=== PATIENT | male | born 1945 | race Caucasian/White ===

== ENCOUNTER 2016-04-15 19:41 | Observation (INO) | payer OTHER ==
[~2016-04-15] VITALS: Ht 180.3 cm; Wt 101.1 kg
[~2016-04-15 19:41] MED LIST: ADVAIR 250/501 DISK IH; ALBUTEROL SULF8.5 GM IH; ANTIVERT25 MG PO; ASPIR 8181 M1 PO; ASPIR-LOW81 MG PO; AUGMENTIN875 MG PO; Aspirin E.C. PO; CIPRO500 MG PO; CRESTOR10 MG PO; DIOVAN80 MG PO; DUONEB 2.5-0.5 M3 ML IH; FENOFIBRATE134 M1 PO; FLONASE16 G1 BOTH NARES; FLOXIN OTIC SOLN5 ML BOTH EARS; Folvite PO; GEMFIBROZIL600 MG PO; HABITROL,NICODE21 MG TD; HYDROCHLOROTH12.5 M1 PO; HYDROCHLOROTH12.5 M3 PO; HYDRODIURIL,O12.5 M2 PO; Habitrol,Nicoderm CQ TD; LOPID600 MG PO; LOPRESSOR25 MG PO; LOVAZA1 GM PO; LUNESTA1 MG PO; Levaquin PO; Lopid PO; METFORMIN HCL1000 MG PO; MICROZIDE12.5 M1 PO; NICOTINE PATCH1 EAC1 TD; NICOTINE PATCH1 EAC2 TD; Norvasc PO; OXYCODONE HCL10 MG PO; OXYCODONE30 MG PO; OXYCONTIN10 MG PO; OXYCONTIN20 MG PO; OXYGEN MC; PANTOPRAZOLE SO40 MG PO; PLAVIX75 MG PO; PREDNISONE10 MG PO; PROAIR HFA8.5 GM IH; SPIRIVA1 INHALATI IH; TEMAZEPAM15 MG PO; THIAMINE,VITAM100 MG PO; Tessalon Perle PO; Ultram PO; VITAMIN B12-FO1 EACH PO; ZESTRIL,PRINIVI20 MG PO; Zestril,Prinivil PO; Zocor PO; predniSONE PO
[2016-04-15 20:02] LABS: HEMATOCRIT 35.4 % (38.0-50.0); MCH 32.3 PG (29.0-34.0); MCHC 33.9 G/DL (30.0-36.0); MCV 95.2 FL (86-99); PLATELET COUNT 297 K/uL (156-360); RBC DIS.WIDTH-CV 13.8 % (11.8-14.6); RBC DIS.WIDTH-SD 44.7 % (39-53); RED BLOOD COUNT 3.72 M/uL (4.00-5.50); WHITE BLOOD COUNT 8.1 K/uL (4.1-10.2)
[2016-04-15 20:11] LABS: CHLORIDE 111 mEq/L (99-109); POTASSIUM 4.6 mEq/L (3.7-5.4); SODIUM 144 mEq/L (136-147)
[2016-04-15 20:12] LABS: GLUCOSE 165 mg/dL (70-99)
[2016-04-15 20:14] LABS: ANION GAP 14 MEQ/L (2-14)
[2016-04-15 20:16] LABS: GFR ESTIMATE (CALCULATED) 43 mL/min/
[2016-04-15 20:17] LABS: UREA NITROGEN (BUN) 20 mg/dL (9-23)
[2016-04-15 20:22] LABS: TROP-I INTERPRETATION NEGATIVE; TROPONIN-I < 0.01 ng/mL (0.0-0.30)
[2016-04-15] MEDS ORDERED: VENTOLIN HFA18 GM IH (21:21)
[2016-04-15] MEDS ORDERED: SILENOR3 MG PO (21:22)
[2016-04-15 23:04] LABS: D-DIMER ELISA 0.63 mg/L FEU (< 0.57)
[2016-04-16 02:21] VITALS: BP 156/80
[2016-04-16 03:09] LABS: HEMATOCRIT 33.9 % (38.0-50.0); MCH 32.1 PG (29.0-34.0); MCHC 33.9 G/DL (30.0-36.0); MCV 94.7 FL (86-99); MEAN PLAT.VOLUME 9.2 uM^3 (9.0-12.4); PLATELET COUNT 287 K/uL (156-360); RBC DIS.WIDTH-CV 13.5 % (11.8-14.6); RBC DIS.WIDTH-SD 43.9 % (39-53); RED BLOOD COUNT 3.58 M/uL (4.00-5.50); WHITE BLOOD COUNT 7.3 K/uL (4.1-10.2)
[2016-04-16 03:19] LABS: CHLORIDE 110 mEq/L (99-109); POTASSIUM 4.9 mEq/L (3.7-5.4); SODIUM 138 mEq/L (136-147)
[2016-04-16 03:23] LABS: ANION GAP 10 MEQ/L (2-14); TOTAL BILIRUBIN 0.2 mg/dL (0.0-1.0)
[2016-04-16 03:25] LABS: ALKALINE PHOSPHATASE 66 IU/L (3-129); GFR ESTIMATE (CALCULATED) 43 mL/min/
[2016-04-16 03:26] LABS: UREA NITROGEN (BUN) 23 mg/dL (9-23)
[2016-04-16 03:29] LABS: TROP-I INTERPRETATION NEGATIVE; TROPONIN-I < 0.01 ng/mL (0.0-0.30)
[2016-04-16 03:33] LABS: GLUCOSE 322 mg/dL (70-99)
[2016-04-16 07:56] LABS: Estimated Average Glucose 128 mg/dL (70-123); HEMOGLOBIN A1c (GLYCOHEMOGLOB) 6.1 % HGB (Below 5.7)
[2016-04-16 09:08] VITALS: BP 168/89
[2016-04-16 09:12] LABS: POINT-OF-CARE METER ID UU14162513
[2016-04-16 09:34] LABS: TROP-I INTERPRETATION NEGATIVE; TROPONIN-I < 0.01 ng/mL (0.0-0.30)
[2016-04-16 12:30] VITALS: BP 147/88
[2016-04-16 12:42] LABS: POINT-OF-CARE METER ID UU14162513
[2016-04-16 14:47] LABS: ADD MIUA? NO; BILIRUBIN NEGATIVE; BLOOD NEGATIVE; COLOR YELLOW ((YELLOW)); GLUCOSE (STRIP) NEGATIVE; KETONES NEGATIVE; LEUKOCYTES NEGATIVE; NITRITE NEGATIVE; PROTEIN (STRIP) NEGATIVE; SPECIFIC GRAVITY 1.013 (1.000-1.030); UCUL ADDED? NO; UROBILINOGEN 0.2 MG/DL (0.2-1.0)
[2016-04-16] MEDS ORDERED: SPIRIVA1 INHALATI IH (14:59)
[2016-04-16] MEDS ORDERED: NICOTINE PATCH1 EAC2 TD (14:59)
[2016-04-16] MEDS ORDERED: AZITHROMYCIN500 M1 PO (14:59)
== END 2016-04-16 16:57 | disposition home or self-care (01) ==
LOC: EME 19:41 → EDOF 22:26 → 5WEST 22:26 → EDOF 22:26 → 5WEST 04-16 00:21
PROVIDERS: Hospitalist; Internal Medicine
DX: R07.89 Other chest pain (principal); J44.1 Chronic obstructive pulmonary disease with (acute) exacerbation; I12.9 Hypertensive chronic kidney disease with stage 1 through stage 4 chronic kidney disease, or unspecified chronic kidney disease; E11.22 Type 2 diabetes mellitus with diabetic chronic kidney disease; N18.3 Chronic kidney disease, stage 3 (moderate); N17.9 Acute kidney failure, unspecified; E78.5 Hyperlipidemia, unspecified; F17.200 Nicotine dependence, unspecified, uncomplicated; D68.9 Coagulation defect, unspecified; G89.29 Other chronic pain; E66.9 Obesity, unspecified; Z68.31 Body mass index [BMI] 31.0-31.9, adult; Z79.82 Long term (current) use of aspirin; Z79.891 Long term (current) use of opiate analgesic; Z88.5 Allergy status to narcotic agent; Z82.49 Family history of ischemic heart disease and other diseases of the circulatory system; Z82.5 Family history of asthma and other chronic lower respiratory diseases
CPT/HCPCS: 71020; 78582; 80048; 80053; 81003; 82948; 83036; 84484; 85027; 85379; 93005; 94640; 94640 76; 99202; 99281; 99285; A9540; A9567; G0378; J1644; J1815; J7030; J7512

== ENCOUNTER 2016-08-08 10:13 | Observation (INO) | payer OTHER ==
[~2016-08-08] VITALS: Ht 175.3 cm; Wt 99.0 kg
[~2016-08-08 10:13] MED LIST changes: +AZITHROMYCIN500 M1 PO; +SILENOR3 MG PO; +VENTOLIN HFA18 GM IH
[2016-08-08 12:18] LABS: EOSINOPHIL (%) 8.8 % (0-5); EOSINOPHIL COUNT 0.7 K/uL (0-0.3); HEMATOCRIT 36.7 % (38.0-50.0); IMMATURE GRANULOCYTE (%) 0.5 % (0.0-0.7); INSTRUMENT ABS NEUTROPHIL CT 4.4 K/uL; LYMPHOCYTE COUNT 2.1 K/uL (1.0-2.8); MCH 31.2 PG (29.0-34.0); MCHC 33.2 G/DL (30.0-36.0); MCV 93.9 FL (86-99); MEAN PLAT.VOLUME 9.5 uM^3 (9.0-12.4); MONOCYTE (%) 10.3 % (3-12); MONOCYTE COUNT 0.8 K/uL (0-0.8); NEUTROPHIL (%) 54.1 % (45-76); NEUTROPHIL COUNT 4.4 K/uL (1.8-6.4); PLATELET COUNT 300 K/uL (156-360); RBC DIS.WIDTH-CV 12.9 % (11.8-14.6); RBC DIS.WIDTH-SD 44.2 % (39-53); RED BLOOD COUNT 3.91 M/uL (4.00-5.50); WHITE BLOOD COUNT 8.1 K/uL (4.1-10.2)
[2016-08-08 12:39] LABS: CHLORIDE 110 mEq/L (99-109); POTASSIUM 4.2 mEq/L (3.7-5.4); SODIUM 143 mEq/L (136-147)
[2016-08-08 12:40] LABS: TROP-I INTERPRETATION NEGATIVE; TROPONIN-I < 0.01 ng/mL (0.0-0.30)
[2016-08-08 12:41] LABS: GLUCOSE 119 mg/dL (70-99)
[2016-08-08 12:43] LABS: ANION GAP 12 MEQ/L (2-14); TOTAL BILIRUBIN 0.2 mg/dL (0.0-1.0)
[2016-08-08 12:45] LABS: ALKALINE PHOSPHATASE 74 IU/L (3-129); GFR ESTIMATE (CALCULATED) 53 mL/min/
[2016-08-08 12:46] LABS: UREA NITROGEN (BUN) 27 mg/dL (9-23)
[2016-08-08 12:46] LABS: ADD MIUA? NO; BILIRUBIN NEGATIVE; BLOOD NEGATIVE; COLOR YELLOW ((YELLOW)); GLUCOSE (STRIP) NEGATIVE; KETONES NEGATIVE; LEUKOCYTES NEGATIVE; NITRITE NEGATIVE; PROTEIN (STRIP) 30; SPECIFIC GRAVITY 1.013 (1.000-1.030); UCUL ADDED? NO; UROBILINOGEN 0.2 MG/DL (0.2-1.0)
[2016-08-08] MEDS ORDERED: HYDROCHLOROTH12.5 M3 PO (13:06)
[2016-08-08 13:20] LABS: HDL CHOLESTEROL 31 MG/DL (Desirable>=40); LDL CHOLESTEROL 58 mg/dL (Desirable<100); NON-HDL CHOLESTEROL 135 mg/dL (Desirable<160); TOTAL CHOLESTEROL 166 mg/dL (Desirable<200); TRIGLYCERIDES 384 MG/DL (Normal: <150)
[2016-08-08 13:51] LABS: Estimated Average Glucose 143 mg/dL (70-123); HEMOGLOBIN A1c (GLYCOHEMOGLOB) 6.6 % HGB (Below 5.7)
[2016-08-08 15:52] VITALS: BP 188/99
[2016-08-08 17:06] VITALS: BP 140/96
[2016-08-08 19:11] VITALS: BP 154/88
[2016-08-08 20:17] LABS: TROP-I INTERPRETATION NEGATIVE; TROPONIN-I 0.01 ng/mL (0.0-0.30)
[2016-08-08 23:50] VITALS: BP 137/89
[2016-08-09 01:04] LABS: TROP-I INTERPRETATION NEGATIVE; TROPONIN-I < 0.01 ng/mL (0.0-0.30)
[2016-08-09 04:00] VITALS: BP 153/87
[2016-08-09 08:00] VITALS: BP 159/90; BP 164/90; BP 169/99
[2016-08-09 11:29] VITALS: BP 133/75
[2016-08-09] MEDS ORDERED: ANTIVERT25 MG PO (14:10)
== END 2016-08-09 15:33 | disposition home or self-care (01) ==
LOC: EME → EDBD 10:13 → EME 10:13 → EDOF 12:34 → 5WEST 15:47
PROVIDERS: Emergency Medicine; Internal Medicine
DX: R42 Dizziness and giddiness (principal); H53.8 Other visual disturbances; R20.0 Anesthesia of skin; I12.9 Hypertensive chronic kidney disease with stage 1 through stage 4 chronic kidney disease, or unspecified chronic kidney disease; N18.3 Chronic kidney disease, stage 3 (moderate); J44.9 Chronic obstructive pulmonary disease, unspecified; G89.29 Other chronic pain; E78.5 Hyperlipidemia, unspecified; F17.200 Nicotine dependence, unspecified, uncomplicated; J45.909 Unspecified asthma, uncomplicated; M19.90 Unspecified osteoarthritis, unspecified site; H55.00 Unspecified nystagmus
CPT/HCPCS: 70450; 70551; 71020; 80053; 80061; 81003; 82948; 83036; 84443; 84484; 85025; 93005; 93880; 94640; 94640 76; 94760; 99202; 99281; 99285; G0378; J1644; J2060; J7030

== ENCOUNTER 2017-02-06 17:02 | Emergency (ER) | payer OTHER ==
[~2017-02-06] VITALS: Ht 180.3 cm; Wt 100.3 kg
[~2017-02-06 17:02] MED LIST changes: +FERROUS SULFAT325 MG PO; +PROTONIX40 MG PO
[2017-02-06 17:37] LABS: POINT-OF-CARE METER ID UU13113778; POINT-OF-CARE USER ID NUTJLF39
[2017-02-06 18:36] LABS: MCHC 32.7 G/DL (30.0-36.0); MCV 91.6 FL (86-99); PLATELET COUNT 285 K/uL (156-360); RBC DIS.WIDTH-CV 13.3 % (11.8-14.6); RBC DIS.WIDTH-SD 44.7 % (39-53); RED BLOOD COUNT 4.04 M/uL (4.00-5.50); WHITE BLOOD COUNT 8.4 K/uL (4.1-10.2)
[2017-02-06 18:44] LABS: CHLORIDE 102 mEq/L (99-109); POTASSIUM 4.6 mEq/L (3.7-5.4); SODIUM 136 mEq/L (136-147)
[2017-02-06 18:46] LABS: GLUCOSE 373 mg/dL (70-99)
[2017-02-06 18:48] LABS: ANION GAP 12 MEQ/L (2-14); TOTAL BILIRUBIN 0.2 mg/dL (0.0-1.0)
[2017-02-06 18:50] LABS: ALKALINE PHOSPHATASE 73 IU/L (3-129); GFR ESTIMATE (CALCULATED) 30 mL/min/
[2017-02-06 18:51] LABS: UREA NITROGEN (BUN) 35 mg/dL (9-23)
[2017-02-06 18:53] LABS: ADD MIUA? YES; BILIRUBIN NEGATIVE; BLOOD NEGATIVE; COLOR YELLOW ((YELLOW)); GLUCOSE (STRIP) >=500; KETONES NEGATIVE; LEUKOCYTES NEGATIVE; NITRITE NEGATIVE; PROTEIN (STRIP) 100; SPECIFIC GRAVITY 1.017 (1.000-1.030); UROBILINOGEN 0.2 MG/DL (0.2-1.0)
[2017-02-06 18:59] LABS: BACTERIA NONE SEEN /HPF; EPITHELIAL CELLS NONE SEEN /HPF; MUCUS TRACE /LPF; RED BLOOD CELLS 0-5 /HPF (0-5); UCUL ADDED? NO; WHITE BLOOD CELLS 0-5 /HPF (0-5)
[2017-02-06 19:36] LABS: POINT-OF-CARE METER ID UU13113747
[2017-02-06 21:36] VITALS: BP 112/74
[2017-02-06] MEDS ORDERED: GLIPIZIDE ER2.5 MG PO (21:42)
[2017-02-06 21:44] LABS: POINT-OF-CARE METER ID UU13113747
== END 2017-02-06 21:54 | disposition home or self-care (01) ==
LOC: EME 17:02
PROVIDERS: Physician Assistant
DX: E11.65 Type 2 diabetes mellitus with hyperglycemia (principal); I12.9 Hypertensive chronic kidney disease with stage 1 through stage 4 chronic kidney disease, or unspecified chronic kidney disease; N18.9 Chronic kidney disease, unspecified; I71.4 Abdominal aortic aneurysm, without rupture; J44.9 Chronic obstructive pulmonary disease, unspecified; E78.5 Hyperlipidemia, unspecified; Z87.442 Personal history of urinary calculi; Z86.73 Personal history of transient ischemic attack (TIA), and cerebral infarction without residual deficits; Z87.891 Personal history of nicotine dependence; Z88.5 Allergy status to narcotic agent; Z88.8 Allergy status to other drugs, medicaments and biological substances
CPT/HCPCS: 74176; 80053; 81003; 82010; 82948; 85027; 99281; 99285; J7030

== ENCOUNTER 2017-07-02 09:13 | Inpatient (IN) | payer OTHER ==
[~2017-07-02] VITALS: Ht 180.3 cm; Wt 106.5 kg
[~2017-07-02 09:13] MED LIST changes: +GLIPIZIDE ER2.5 MG PO
[2017-07-02 09:31] LABS: BASOPHIL (%) 0.5 % (0-1); EOSINOPHIL (%) 5.4 % (0-5); EOSINOPHIL COUNT 0.4 K/uL (0-0.3); HEMATOCRIT 40.1 % (38.0-50.0); HEMOGLOBIN 13.9 G/DL (12.5-16.6); IMMATURE GRANULOCYTE (%) 0.8 % (0.0-0.7); LYMPHOCYTE (%) 24.9 % (15-42); LYMPHOCYTE COUNT 1.9 K/uL (1.0-2.8); MCH 31.4 PG (29.0-34.0); MCHC 34.7 G/DL (30.0-36.0); MCV 90.5 FL (86-99); MONOCYTE (%) 8.1 % (3-12); MONOCYTE COUNT 0.6 K/uL (0-0.8); NEUTROPHIL (%) 60.3 % (45-76); NEUTROPHIL COUNT 4.5 K/uL (1.8-6.4); PLATELET COUNT 207 K/uL (156-360); RBC DIS.WIDTH-CV 12.8 % (11.8-14.6); RBC DIS.WIDTH-SD 42.5 % (39-53); RED BLOOD COUNT 4.43 M/uL (4.00-5.50); WHITE BLOOD COUNT 7.5 K/uL (4.1-10.2)
[2017-07-02 09:39] LABS: AMYLASE 138 IU/L (1-118); CHLORIDE 104 mEq/L (99-109); POTASSIUM 4.2 mEq/L (3.7-5.4); SODIUM 139 mEq/L (136-147)
[2017-07-02 09:41] LABS: GLUCOSE 197 mg/dL (70-99); PTT 30.8 SEC (25-37)
[2017-07-02 09:44] LABS: SERUM ETHYL ALCOHOL < 10 mg/dL
[2017-07-02 09:45] LABS: CREATININE 1.7 mg/dL (0.6-1.3); GFR ESTIMATE (CALCULATED) 42 mL/min/ (58.99-99999)
[2017-07-02 09:46] LABS: UREA NITROGEN (BUN) 20 mg/dL (9-23)
[2017-07-02 09:48] LABS: LIPASE 103 U/L (1.0-51.0)
[2017-07-02 09:51] LABS: TROP-I INTERPRETATION NEGATIVE; TROPONIN-I < 0.01 ng/mL (0.0-0.30)
[2017-07-02 12:23] LABS: APPEARANCE CLEAR ((CLEAR)); BILIRUBIN NEGATIVE; BLOOD NEGATIVE; COLOR YELLOW ((YELLOW)); GLUCOSE (STRIP) NEGATIVE; KETONES NEGATIVE; LEUKOCYTES NEGATIVE; NITRITE NEGATIVE; PROTEIN (STRIP) 30; SPECIFIC GRAVITY 1.016 (1.000-1.030); UCUL ADDED? NO; UROBILINOGEN 0.2 MG/DL (0.2-1.0)
[2017-07-02 12:45] LABS: AMPHETAMINE NEGATIVE (500 ng/mL); BARBITURATES NEGATIVE (200 ng/mL); BENZODIAZEPINES NEGATIVE (150 ng/mL); BUPRENORPHINE NEGATIVE (10 ng/mL); COCAINE NEGATIVE (150 ng/mL); METHADONE NEGATIVE (200 ng/mL); METHAMPHETAMINE NEGATIVE (500 ng/mL); OPIATES (MORPHINE) NEGATIVE (100 ng/mL); OXYCODONE NEGATIVE (100 ng/mL); PHENCYCLIDINE NEGATIVE (25 ng/mL); PROPOXYPHENE NEGATIVE (300 ng/mL); THC CANNABINOIDS NEGATIVE (50 ng/mL); TRICYCLIC ANTIDEPRESSANTS NEGATIVE (300 ng/mL)
[2017-07-02] MEDS ORDERED: PANTOPRAZOLE SO40 MG PO (13:14)
[2017-07-02] MEDS ORDERED: IRON325 M1 PO (13:16)
[2017-07-02] MEDS ORDERED: NOVOLOG PE100 UNITS/ SC (13:19)
[2017-07-02] MEDS ORDERED: OXYCODONE HCL E20 MG PO (13:20)
[2017-07-02] MEDS ORDERED: TRESIBA FL100 UNIT/1 SC (13:21)
[2017-07-02] MEDS ORDERED: VALSARTAN80 MG PO (13:24)
[2017-07-02] MEDS ORDERED: ROSUVASTATIN CA10 MG PO (13:24)
[2017-07-02] MEDS ORDERED: FENOFIBRATE134 M1 PO (13:26)
[2017-07-02] MEDS ORDERED: OMEGA-3 ACID ETH1 GM PO (13:27)
[2017-07-02] MEDS ORDERED: ROSUVASTATIN CA20 MG PO (13:27)
[2017-07-02 14:18] LABS: HDL CHOLESTEROL 29 MG/DL (Desirable>=40); NON-HDL CHOLESTEROL 145 mg/dL (Desirable<160); TOTAL CHOLESTEROL 174 mg/dL (Desirable<200); TRIGLYCERIDES 411 MG/DL (Normal: <150)
[2017-07-02 19:06] VITALS: BP 148/89
[2017-07-02 19:22] VITALS: BP 139/78
[2017-07-02 23:26] VITALS: BP 164/89
[2017-07-03 04:04] VITALS: BP 113/74
[2017-07-03 06:43] LABS: HEMATOCRIT 38.5 % (38.0-50.0); MCHC 33.8 G/DL (30.0-36.0); MCV 91.7 FL (86-99); PLATELET COUNT 197 K/uL (156-360); RBC DIS.WIDTH-CV 12.9 % (11.8-14.6); RBC DIS.WIDTH-SD 43.4 % (39-53)
[2017-07-03 07:57] VITALS: BP 146/72
[2017-07-03 09:49] LABS: HEMOGLOBIN A1c (GLYCOHEMOGLOB) 10.1 % (Below 5.7)
[2017-07-03 11:44] VITALS: BP 138/74
== END 2017-07-03 14:42 | disposition home or self-care (01) | DRG 65 ==
LOC: EME 09:13 → EDOF 12:39 → ENRESERV 12:42 → EDOF 12:58 → ENRESERV 15:45 → 5SOUTH 17:51
PROVIDERS: Emergency Medicine; Internal Medicine; Nurse Practitioner Adult Health
DX: I63.9 Cerebral infarction, unspecified (principal); R47.1 Dysarthria and anarthria; R47.81 Slurred speech; G81.94 Hemiplegia, unspecified affecting left nondominant side; E11.9 Type 2 diabetes mellitus without complications; J44.9 Chronic obstructive pulmonary disease, unspecified; G47.33 Obstructive sleep apnea (adult) (pediatric); F17.200 Nicotine dependence, unspecified, uncomplicated; I73.9 Peripheral vascular disease, unspecified; G43.109 Migraine with aura, not intractable, without status migrainosus; E11.51 Type 2 diabetes mellitus with diabetic peripheral angiopathy without gangrene; E78.5 Hyperlipidemia, unspecified; I10 Essential (primary) hypertension; G89.29 Other chronic pain; M54.5 Low back pain; M19.90 Unspecified osteoarthritis, unspecified site; Z87.01 Personal history of pneumonia (recurrent); Z88.5 Allergy status to narcotic agent; Z88.6 Allergy status to analgesic agent; Z82.49 Family history of ischemic heart disease and other diseases of the circulatory system; Z86.73 Personal history of transient ischemic attack (TIA), and cerebral infarction without residual deficits; Z79.899 Other long term (current) drug therapy; Z82.5 Family history of asthma and other chronic lower respiratory diseases; Z87.442 Personal history of urinary calculi
CPT/HCPCS: 70450; 70544; 70549; 70551; 80048; 80061; 81003; 82150; 82948; 83036; 83690; 84484; 85025; 85027; 85610; 85730; 86850; 86900; 86901; 93005; 94640; 94640 76; 99202; 99281; 99285; G0480; J2060

== ENCOUNTER 2017-11-08 15:34 | Inpatient (IN) | payer OTHER ==
[2017-11-08] VITALS (7 sets, daily range): BP systolic 111–133; BP diastolic 65–80
[~2017-11-08] VITALS: Ht 180.3 cm; Wt 109.0 kg
[~2017-11-08 15:34] MED LIST changes: +IRON325 M1 PO; +NOVOLOG PE100 UNITS/ SC; +OMEGA-3 ACID ETH1 GM PO; +OXYCODONE HCL E20 MG PO; +ROSUVASTATIN CA10 MG PO; +ROSUVASTATIN CA20 MG PO; +TRESIBA FL100 UNIT/1 SC; +VALSARTAN80 MG PO
[2017-11-08 16:25] LABS: HEMATOCRIT 21.5 % (38.0-50.0); HEMOGLOBIN 6.8 G/DL (12.5-16.6); MCH 28.7 PG (29.0-34.0); MCHC 31.6 G/DL (30.0-36.0); MCV 90.7 FL (86-99); NRBC (%) 0.5 /100 WBC (0-0); PLATELET COUNT 249 K/uL (156-360); RBC DIS.WIDTH-CV 14.6 % (11.8-14.6); RBC DIS.WIDTH-SD 46.5 % (39-53); RED BLOOD COUNT 2.37 M/uL (4.00-5.50); WHITE BLOOD COUNT 7.9 K/uL (4.1-10.2)
[2017-11-08 16:28] LABS: ALBUMIN 3.5 g/dL (3.2-4.8)
[2017-11-08 16:29] LABS: CHLORIDE 111 mEq/L (99-109); POTASSIUM 4.4 mEq/L (3.7-5.4); SODIUM 142 mEq/L (136-147)
[2017-11-08 16:31] LABS: GLUCOSE 226 mg/dL (70-99); TOTAL PROTEIN 6.4 g/dL (6.4-8.3)
[2017-11-08 16:33] LABS: TOTAL BILIRUBIN 0.3 mg/dL (0.0-1.0)
[2017-11-08 16:34] LABS: ALKALINE PHOSPHATASE 80 IU/L (3-129)
[2017-11-08 16:35] LABS: CREATININE 1.7 mg/dL (0.6-1.3); GFR ESTIMATE (CALCULATED) 42 mL/min/ (58.99-99999)
[2017-11-08 16:36] LABS: AST (GOT) 43 IU/L (2-34); UREA NITROGEN (BUN) 28 mg/dL (9-23)
[2017-11-08 16:37] LABS: ALT (GPT) 28 IU/L (3-49)
[2017-11-08 16:44] LABS: APPEARANCE CLEAR ((CLEAR)); BILIRUBIN NEGATIVE; BLOOD NEGATIVE; COLOR YELLOW ((YELLOW)); GLUCOSE (STRIP) NEGATIVE; KETONES NEGATIVE; LEUKOCYTES NEGATIVE; NITRITE NEGATIVE; PROTEIN (STRIP) 30; SPECIFIC GRAVITY 1.016 (1.000-1.030); UCUL ADDED? NO; UROBILINOGEN 0.2 MG/DL (0.2-1.0)
[2017-11-08 17:30] LABS: HEMATOCRIT 20.9 % (38.0-50.0); MCV 90.9 FL (86-99)
[2017-11-08 17:31] LABS: HEMOGLOBIN 6.7 G/DL (12.5-16.6)
[2017-11-08] MEDS ORDERED: PROTONIX40 MG PO (18:43)
[2017-11-08] MEDS ORDERED: GABAPENTIN300 MG PO (18:43)
[2017-11-08] MEDS ORDERED: ADULT ASPIRIN R81 MG PO (18:43)
[2017-11-08] MEDS ORDERED: COZAAR50 MG PO (18:43)
[2017-11-08 20:14] LABS: TROP-I INTERPRETATION NEGATIVE; TROPONIN-I < 0.01 ng/mL (0.0-0.30)
[2017-11-09] VITALS (7 sets, daily range): BP systolic 114–138; BP diastolic 55–78
[2017-11-09 00:36] LABS: HEMATOCRIT 25.8 % (38.0-50.0); HEMOGLOBIN 8.1 G/DL (12.5-16.6)
[2017-11-09 05:54] LABS: HEMATOCRIT 26.1 % (38.0-50.0); HEMOGLOBIN 7.9 G/DL (12.5-16.6); MCV 89.1 FL (86-99)
[2017-11-09 06:13] LABS: TROP-I INTERPRETATION NEGATIVE; TROPONIN-I < 0.01 ng/mL (0.0-0.30)
[2017-11-09 12:18] LABS: TROP-I INTERPRETATION NEGATIVE; TROPONIN-I < 0.01 ng/mL (0.0-0.30)
[2017-11-09 16:32] LABS: HEMATOCRIT 27.1 % (38.0-50.0); HEMOGLOBIN 8.4 G/DL (12.5-16.6); MCV 88.6 FL (86-99)
[2017-11-10 03:32] VITALS: BP 128/61
[2017-11-10 07:10] LABS: HEMATOCRIT 26.1 % (38.0-50.0); MCH 27.2 PG (29.0-34.0); MCHC 30.7 G/DL (30.0-36.0); MCV 88.8 FL (86-99); PLATELET COUNT 228 K/uL (156-360); RBC DIS.WIDTH-CV 15.2 % (11.8-14.6); RBC DIS.WIDTH-SD 48.3 % (39-53); WHITE BLOOD COUNT 6.2 K/uL (4.1-10.2)
[2017-11-10 07:14] LABS: RED BLOOD COUNT 2.94 M/uL (4.00-5.50)
[2017-11-10 07:22] LABS: ALBUMIN 3.4 G/DL (3.2-4.8); CHLORIDE 108 MEQ/L (99-109); CREATININE 1.4 MG/DL (0.6-1.3); GFR ESTIMATE (CALCULATED) 53 mL/min/ (58.99-99999); PHOSPHORUS 3.7 mg/dL (2.5-4.9); POTASSIUM 4.2 MEQ/L (3.7-5.4); SODIUM 144 MEQ/L (136-147); UREA NITROGEN (BUN) 20 mg/dL (9-23)
[2017-11-10 07:27] LABS: GLUCOSE 120 mg/dL (70-99)
[2017-11-10 07:33] VITALS: BP 121/61
[2017-11-10 12:17] VITALS: BP 131/70
[2017-11-10 14:57] VITALS: BP 139/82
[2017-11-10 21:04] VITALS: BP 135/76
[2017-11-11] VITALS (7 sets, daily range): BP systolic 111–138; BP diastolic 63–88
[2017-11-11 05:44] LABS: HEMATOCRIT 25.1 % (38.0-50.0); HEMOGLOBIN 7.8 G/DL (12.5-16.6); MCH 27.5 PG (29.0-34.0); MCHC 31.1 G/DL (30.0-36.0); MCV 88.4 FL (86-99); PLATELET COUNT 222 K/uL (156-360); RBC DIS.WIDTH-CV 14.8 % (11.8-14.6); RBC DIS.WIDTH-SD 47.3 % (39-53); RED BLOOD COUNT 2.84 M/uL (4.00-5.50); WHITE BLOOD COUNT 6.2 K/uL (4.1-10.2)
[2017-11-12 03:55] VITALS: BP 121/74
[2017-11-12 05:51] LABS: HEMATOCRIT 28.6 % (38.0-50.0); HEMOGLOBIN 8.9 G/DL (12.5-16.6); MCH 27.2 PG (29.0-34.0); MCHC 31.1 G/DL (30.0-36.0); MCV 87.5 FL (86-99); PLATELET COUNT 254 K/uL (156-360); RBC DIS.WIDTH-CV 14.6 % (11.8-14.6); RBC DIS.WIDTH-SD 46.5 % (39-53); RED BLOOD COUNT 3.27 M/uL (4.00-5.50); WHITE BLOOD COUNT 6.1 K/uL (4.1-10.2)
[2017-11-12 06:18] LABS: CHLORIDE 107 MEQ/L (99-109); CREATININE 1.3 MG/DL (0.6-1.3); GFR ESTIMATE (CALCULATED) 58 mL/min/ (58.99-99999); GLUCOSE 109 mg/dL (70-99); PHOSPHORUS 3.1 mg/dL (2.5-4.9); POTASSIUM 4.3 MEQ/L (3.7-5.4); SODIUM 141 MEQ/L (136-147); UREA NITROGEN (BUN) 13 mg/dL (9-23)
[2017-11-12 07:30] VITALS: BP 130/69
[2017-11-12 11:15] VITALS: BP 142/74
[2017-11-12 15:24] VITALS: BP 138/81
[2017-11-12 21:00] VITALS: BP 113/63
[2017-11-13 00:25] VITALS: BP 128/70
[2017-11-13 04:01] VITALS: BP 120/65
[2017-11-13 06:15] LABS: HEMATOCRIT 26.4 % (38.0-50.0); HEMOGLOBIN 8.1 G/DL (12.5-16.6); MCH 26.7 PG (29.0-34.0); MCHC 30.7 G/DL (30.0-36.0); MCV 87.1 FL (86-99); PLATELET COUNT 228 K/uL (156-360); RBC DIS.WIDTH-CV 14.4 % (11.8-14.6); RBC DIS.WIDTH-SD 46.1 % (39-53); RED BLOOD COUNT 3.03 M/uL (4.00-5.50); WHITE BLOOD COUNT 6.6 K/uL (4.1-10.2)
[2017-11-13 07:13] VITALS: BP 131/73
[2017-11-13] MEDS ORDERED: PROTONIX40 MG PO (09:29)
== END 2017-11-13 11:19 | disposition home or self-care (01) | DRG 379 ==
LOC: EME 15:34 → EDOF 21:39 → 5SOUTH 21:39 → ENRESERV 21:52 → 5SOUTH 23:07
PROVIDERS: Hospitalist; Internal Medicine Gastroenterology; Nurse Practitioner Family; Physician Assistant
DX: K92.2 Gastrointestinal hemorrhage, unspecified (principal); G47.33 Obstructive sleep apnea (adult) (pediatric); I10 Essential (primary) hypertension; E78.5 Hyperlipidemia, unspecified; J44.9 Chronic obstructive pulmonary disease, unspecified; E11.9 Type 2 diabetes mellitus without complications; Z86.73 Personal history of transient ischemic attack (TIA), and cerebral infarction without residual deficits; E66.01 Morbid (severe) obesity due to excess calories; E78.00 Pure hypercholesterolemia, unspecified; K31.7 Polyp of stomach and duodenum; K63.5 Polyp of colon; Z86.010 Personal history of colon polyps; K57.30 Diverticulosis of large intestine without perforation or abscess without bleeding; K64.4 Residual hemorrhoidal skin tags; K64.8 Other hemorrhoids; K29.70 Gastritis, unspecified, without bleeding; Z68.33 Body mass index [BMI] 33.0-33.9, adult; Z87.442 Personal history of urinary calculi; Z87.891 Personal history of nicotine dependence; D50.0 Iron deficiency anemia secondary to blood loss (chronic)
CPT/HCPCS: 74177; 80053; 80069; 81003; 82272; 82948; 84484; 85014; 85018; 85027; 85610; 85730; 86850; 86900; 86901; 86920; 88304; 88305; 88342 TC; 93005; 94640; 94660; 94799; 99281; 99285; C9113; J1815; J1885; P9016